=== PATIENT | female | born 1995 | race Caucasian/White ===

== ENCOUNTER → 2016-12-24 | Outpatient (CLI) | payer BC ==
[2016-12-26 07:43] LABS: THYROXINE (T4) 6.3 ug/dL (4.5-12.0)
== END ==
LOC: OD 13:11
PROVIDERS: ATTEND Pediatrics
DX: R63.5 Abnormal weight gain (principal)
CPT/HCPCS: 36415; 84436; 84443; 84480

== ENCOUNTER 2020-01-21 01:41 | Observation (INO) | payer BC ==
[2020-01-21 02:42] LABS: ABSOLUTE LYMPHOCYTES (AUTO) 1.5 10^3/uL (0.5-4.7); ABSOLUTE MONOCYTES (AUTO) 0.8 10^3/uL (0.1-1.4); ABSOLUTE NEUT (AUTO) 13.9 10^3/uL (1.7-8.2); BASOPHILS % (AUTO) 0.2 % (0-2); EOSINOPHILS % (AUTO) 0.3 % (0-6); HEMATOCRIT 42.5 % (36.0-47.0); HEMOGLOBIN 14.4 g/dL (12.0-15.5); MEAN CORPUSCULAR HEMOGLOBIN 28.7 pg (27.0-33.4); MEAN CORPUSCULAR HGB CONC 33.8 g/dL (32.0-36.0); MEAN CORPUSCULAR VOLUME 85 fl (80-97); MONOCYTES % (AUTO) 5.1 % (3-13); PLATELET COUNT 300 10^3/uL (150-450); RED BLOOD COUNT 5.01 10^6/uL (3.72-5.28); RED CELL DISTRIBUTION WIDTH 13.4 % (11.5-14.0); SEGMENTED NEUTROPHILS % (AUTO) 85.4 % (42-78); TOTAL CELLS COUNTED % (AUTO) 100 %; WHITE BLOOD COUNT 16.2 10^3/uL (4.0-10.5)
[2020-01-21 02:46] LABS: APPEARANCE,URINE SLIGHTLY-CLOUDY; BILIRUBIN,URINE NEGATIVE (NEGATIVE); COLOR,URINE YELLOW; GLUCOSE, URINE NEGATIVE (NEGATIVE); KETONES,URINE NEGATIVE (NEGATIVE); LEUKOCYTE ESTERASE,URINE NEGATIVE (NEGATIVE); NITRITE,URINE NEGATIVE (NEGATIVE); PROTEIN,URINE 30 mg/dL (NEGATIVE); URINE SPECIFIC GRAVITY 1.035; UROBILINOGEN,URINE NEGATIVE mg/dL (<2.0)
[2020-01-21 03:02] LABS: ALBUMIN 4.4 g/dL (3.5-5.0); ALKALINE PHOSPHATASE 84 U/L (38-126); ANION GAP 10 (5-19); ASPARTATE AMINO TRANSFERASE 20 U/L (14-36); BILIRUBIN,TOTAL 0.9 mg/dL (0.2-1.3); BLOOD UREA NITROGEN 10 mg/dL (7-20); CALCIUM 9.5 mg/dL (8.4-10.2); CARBON DIOXIDE 24 mmol/L (22-30); CHLORIDE 104 mmol/L (98-107); GLUCOSE 114 mg/dL (75-110); TOTAL PROTEIN 7.7 g/dL (6.3-8.2)
--- NOTE | 2020-01-21 05:44 | RADIOLOGY REPORT (SQ) ---
EXAM DESCRIPTION: CT ABDOMEN PELVIS WITH IV CONTRAST COMPLETED DATE/TME: 01/21/2020 00:00 CLINICAL HISTORY: 24 years, Female, RLQ pain COMPARISON: None. TECHNIQUE: Axial CT images of the abdomen and pelvis were obtained of the demonstration of IV contrast. Sagittal and coronal reformats were performed. [facility] 2401 Images stored on PACS. All CT scanners at this facility use dose modulation, iterative reconstruction, and/or weight based dosing when appropriate to reduce radiation dose to as low as reasonably achievable (ALARA). [facility]: Dose Right [facility]: CareDose [facility]: Dose Right [facility]: Teradose 4D [facility]: [employer] Technologies LIMITATIONS: None. FINDINGS: Lung bases are clear. The liver, gallbladder, pancreas, spleen, and adrenal glands are unremarkable. Both kidneys enhance normally. No evidence of hydronephrosis bilaterally. There is no intraperitoneal free air or fluid. There is no lymphadenopathy. Abdominal aorta is normal in caliber. The stomach and small bowel are unremarkable. The appendix measures up to 8 mm in diameter with surrounding inflammatory changes. No evidence of a perforation or abscess/phlegmon formation. The colon is incompletely distended. The uterus, adnexa, and urinary bladder are unremarkable. There are no lytic or blastic bone lesions. IMPRESSION: Acute uncomplicated appendicitis TECHNICAL DOCUMENTATION: Quality ID # 436: Final reports with documentation of one or more dose reduction techniques (e.g., Automated exposure control, adjustment of the mA and/or kV according to patient size, use of iterative reconstruction technique) copyright 2011 [employer]- All Rights Reserved
--- NOTE | 2020-01-21 06:21 | ER Document Report ---
ED General - General Chief Complaint: Abdominal Pain Stated Complaint: ABDOMINAL PAIN Time Seen by Provider: 01/21/20 06:07 Primary Care Provider: SRINIVASA MURRAY PA [Primary Care Provider] - Follow up as needed Notes: 24 y/o obese Female with past medical history of hypothyroidism presenting today with right lower quadrant pain starting yesterday at noon but worsening in intensity in the last 6 hours. States she has had associated nausea and vomiting and has been able unable to keep any food down. She is unable to find a comfortable position to sit in. Denies any fevers chills shortness of breath chest pain or additional symptoms at this time. She denies any prior abdominal surgical procedures. Is currently on control. TRAVEL OUTSIDE OF THE [place] IN LAST 30 DAYS: No - Related Data Allergies/Adverse Reactions: cephalexin [Cephalexin] Allergy (Verified 09/01/12 20:43) Penicillins Allergy (Verified 09/01/12 20:43) Home Medications: levothyroxin. control Past Medical History - Social History Smoking Status: Never Smoker Chew tobacco use (# tins/day): No Frequency of alcohol use: Occasional Family History: Reviewed & Not Pertinent Patient has homicidal ideation: No Neurological Medical History: Reports: Hx Migraine - Immunizations Immunizations up to date: Yes Hx Diphtheria, Pertussis, Tetanus Vaccination: Yes Review of Systems - Review of Systems Constitutional: No symptoms reported EENT: No symptoms reported Cardiovascular: No symptoms reported Respiratory: No symptoms reported Gastrointestinal: See HPI Genitourinary: No symptoms reported Female Genitourinary: No symptoms reported Musculoskeletal: No symptoms reported Skin: No symptoms reported Hematologic/Lymphatic: No symptoms reported Physical Exam - Vital signs Vitals: Temp Pulse Resp BP Pulse Ox 97.7 F 95 16 147/88 H 99 01/21/20 01:46 01/21/20 01:46 01/21/20 01:46 01/21/20 01:46 01/21/20 01:46 Interpretation: Tachycardic - Notes Notes: Adult General: GENERAL: Alert, interacts well. acute distress HEAD: Normocephalic, atraumatic EYES: Pupils equal, round and reactive to light. Extraocular movements intact. ENT: Airway patent. Nares patent. NECK: Full range of motion. Supple. Trachea midline. No lymphadenopathy. LUNGS: Clear to auscultation bilaterally, no wheezes, rales, or rhonchi. No respiratory distress. Nontender chest wall. HEART: Regular rate and rhythm. No murmurs, rubs or gallops. ABDOMEN: Soft, tender to palpation right lower and upper quadrant. Nondistended. (-) [place] sign. Bowel sounds present in all 4 quadrants. No rebound. GENITOURINARY: Deferred EXTREMITIES: Moves all 4 extremities spontaneously. BACK: Moves all extremities with full range of motion. NEUROLOGICAL: Alert and oriented x3. Normal speech. Strength 5/ 5 in all extremities. PSYCH: Normal affect, normal mood. SKIN: Warm, dry, normal turgor. No rashes or lesions noted. Course - Re-evaluation Re-evalutation: 01/21/20 06:22 Patient with an elevated white count of 16,200. She is afebrile. Her CT scan ordered by another provider shows acute appendicitis. I placed the patient n.p.o. and ordered urine . 01/21/20 06:26 Dr. Pizano was contacted who came to evaluate the patient. Patient to be NPO. Dr. Brumfield will be admitting physician. Rapid covid test was ordered. Pending results. 01/21/20 07:57 - Vital Signs Vital signs: Temp Pulse Resp BP Pulse Ox 98.7 F 106 H 20 125/78 100 01/21/20 05:22 01/21/20 05:22 01/21/20 05:22 01/21/20 05:22 01/21/20 05:22 - Laboratory Result Diagrams: 01/21/20 02:30 01/21/20 02:30 Laboratory results interpreted by me: 01/21/20 01/21/20 01/21/20 02:30 02:30 02:30 WBC 16.2 H Lymph % (Auto) 9.0 L Absolute Neuts (auto) 13.9 H Seg Neutrophils % 85.4 H Glucose 114 H Urine Protein 30 H Urine Ascorbic Acid 40 H Discharge - Discharge Clinical Impression: Appendicitis Qualifiers: Appendicitis type: acute appendicitis Acute appendicitis type: unspecified acute appendicitis type Qualified Code(s): K35.80 - Unspecified acute appendicitis Condition: Stable Disposition: ADMITTED INPATIENT Admitting Provider: Surgicalist - Dr. Brumfield Unit Admitted: Surgical Floor Referrals: SRINIVASA MURRAY PA [Primary Care Provider] - Follow up as needed
[2020-01-21] MEDS ORDERED: MORPHINE SULFATE 10 MG/ML INJ IV ONE (06:24)
--- NOTE | 2020-01-21 07:33 | PDOC H&P ---
History of Present Illness Admission Date/PCP: BUSTER SADLER Patient complains of: Right lower quadrant pain History of Present Illness: ZAHRA DONALDSON is a 24 year old female with a 1 day history of sharp, stabbing, worsening right lower quadrant pain. It began as intermittent cramping, and has progressed to constant sharp pain. She rates it is 8 out of 10. She denies any nausea, vomiting, fevers, or chills. She denies melena, hematochezia, or hematemesis. Her pain does not radiate. Nothing makes her pain better. Palpation and movement make it worse. She also denies chest pain, shortness of breath, dizziness, orthostasis, blurry vision, hearing difficulties, malaise, or fatigue. Past Medical History Neurological Medical History: Reports: Migraine Past Surgical History Past Surgical History: Reports: Other - [place] tooth extraction Social History Smoking Status: Never Smoker Electronic Cigarette use?: No Frequency of Alcohol Use: Occasional Hx Recreational Drug Use: No Hx Prescription Drug Abuse: No Family History Parental Family History Reviewed: Yes Children Family History Reviewed: Yes Sibling(s) Family History Reviewed.: Yes Medication/Allergy Home Medications: No Home Medications 09/06/11 Allergies/Adverse Reactions: cephalexin [Cephalexin] Allergy (Verified 09/01/12 20:43) Penicillins Allergy (Verified 09/01/12 20:43) Review of Systems Constitutional: ABSENT: anorexia, chills, fatigue, fever(s), headache(s), weakness Eyes: ABSENT: visual disturbances Ears: ABSENT: hearing changes Nose, Mouth, and Throat: ABSENT: sore throat Cardiovascular: ABSENT: chest pain Respiratory: ABSENT: cough Gastrointestinal: PRESENT: abdominal pain, bloating. ABSENT: hematochezia, melena, nausea, vomiting Genitourinary: ABSENT: dysuria Musculoskeletal: ABSENT: back pain Integumentary: ABSENT: pruritus, rash Neurological: ABSENT: confusion, convulsions, dizziness Psychiatric: ABSENT: anxiety, depression Endocrine: ABSENT: cold intolerance, heat intolerance Hematologic/Lymphatic: ABSENT: easy bleeding, easy bruising Physical Exam Vital Signs: Temp Pulse Resp BP Pulse Ox 98.7 F 106 H 20 125/78 100 01/21/20 05:22 01/21/20 05:01/21/20 05:01/21/20 05:01/21/20 05:22 Intake & Output 01/20/20 01/21/20 01/22/20 06:59 06:59 06:59 Weight 126.4 kg General appearance: PRESENT: no acute distress, cooperative Head exam: PRESENT: atraumatic, normocephalic Eye exam: PRESENT: EOMI, PERRLA. ABSENT: scleral icterus Mouth exam: PRESENT: moist, neck supple Neck exam: PRESENT: meningismus, tenderness, thyromegaly, tracheal deviation Respiratory exam: PRESENT: unlabored. ABSENT: tachypnea, wheezes Cardiovascular exam: ABSENT: tachycardia Vascular exam: PRESENT: normal capillary refill GI/Abdominal exam: PRESENT: guarding - in the right lower quadrant, soft, tenderness - Right lower quadrant Rectal exam: PRESENT: deferred Extremities exam: ABSENT: clubbing Musculoskeletal exam: ABSENT: deformity Neurological exam: PRESENT: alert, awake, oriented to person, oriented to place, oriented to time, oriented to situation Psychiatric exam: ABSENT: agitated, anxious, depressed Focused psych exam: ABSENT: delusional Skin exam: ABSENT: cyanosis, erythema, jaundice Results Laboratory Results: 01/21/20 02:30 01/21/20 02:30 01/21/20 01/21/20 01/21/20 02:30 02:30 02:30 WBC 16.2 H RBC 5.01 Hgb 14.4 Hct 42.5 MCV 85 MCH 28.7 MCHC 33.8 RDW 13.4 Plt Count 300 Seg Neutrophils % 85.4 H Sodium 137.8 Potassium 4.0 Chloride 104 Carbon Dioxide 24 Anion Gap 10 BUN 10 Creatinine 0.67 Est GFR ( Amer) > 60 Glucose 114 H Calcium 9.5 Total Bilirubin 0.9 AST 20 Alkaline Phosphatase 84 Total Protein 7.7 Albumin 4.4 Lipase 92.3 Urine Color YELLOW Urine Appearance SLIGHTLY-CLOUDY Urine pH 5.0 Ur Specific [place] 1.035 Urine Protein 30 H Urine Glucose (UA) NEGATIVE Urine Ketones NEGATIVE Urine Blood NEGATIVE Urine Nitrite NEGATIVE Ur Leukocyte Esterase NEGATIVE Urine WBC (Auto) 3 Urine RBC (Auto) 1 Impressions: Abdomen/Pelvis CT 01/21/20 00:00 IMPRESSION: Acute uncomplicated appendicitis TECHNICAL DOCUMENTATION: Quality ID # 436: Final reports with documentation of one or more dose reduction techniques (e.g., Automated exposure control, adjustment of the mA and/or kV according to patient size, use of iterative reconstruction technique) copyright 2010 [employer]- All Rights Reserved Assessment & Plan - Diagnosis (1) Acute appendicitis Qualifiers: Acute appendicitis type: unspecified acute appendicitis type Qualified Code(s): K35.80 - Unspecified acute appendicitis Is this a current diagnosis for this admission?: Yes - Plan Summary Plan Summary: This is a 24-year-old female with acute appendicitis, seen on CT scan. She has a leukocytosis and right lower quadrant pain. I have discussed operative versus nonoperative treatment of appendicitis. The patient has chosen operative intervention. Risks/benefits discussed, informed consent obtained, and all ques tions answered. Rapid COVID test now. The procedure will be performed later today by Dr. Brumfield. Patient has been informed of this, and is agreeable.
[2020-01-21] MEDS ORDERED: ONDANSETRON HCL INJ/PF 4 MG/2 ML SDV IV PRN ×2 (07:45→13:42)
[2020-01-21] MEDS ORDERED: DEXTROSE 5%-LACTATED RINGERS 1,000 ML IV PRN (07:45)
[2020-01-21] MEDS ORDERED: METRONIDAZOLE 500 MG/NS RTU 500 MG/100 ML RTUPB IV ONE (08:00)
[2020-01-21] MEDS ORDERED: CIPROFLOXACIN 400 MG/D5W RTU 400 MG/200 ML RTUPB IV ONE (08:00)
[2020-01-21] MEDS ORDERED: ACETAMINOPHEN 1,000 MG/100 ML RTUPB IV ONE (08:00)
[2020-01-21] MEDS ORDERED: VECURONIUM BROMIDE INJ 10 MG VIAL IV ONE (08:29)
[2020-01-21] MEDS ORDERED: SUCCINYLCHOLINE CHLORIDE INJ 200 MG/10 ML VIAL ONE (08:29)
[2020-01-21] MEDS: KETOROLAC TROMETHAMINE INJ/PF 30 MG/1 ML SDV IV PRN ×2 (10:25→18:37)
[2020-01-21] MEDS ORDERED: BUPIVACAINE HCL 0.25 % INJ/PF (2.5 MG/1 ML) 30 ML VIAL ONE (11:52)
[2020-01-21] MEDS ORDERED: KETOROLAC TROMETHAMINE 60 MG/2 ML SDV ONE (12:46)
[2020-01-21] MEDS ORDERED: ONDANSETRON HCL INJ/PF 4 MG/2 ML SDV ONE (12:46)
[2020-01-21] MEDS ORDERED: MIDAZOLAM 2 MG/2 ML INJ ONE (12:46)
[2020-01-21] MEDS ORDERED: PROPOFOL INJ 200 MG/20 ML VIAL IV ONE (12:46)
[2020-01-21] MEDS ORDERED: FENTANYL CITRATE INJ/PF 100 MCG/2 ML AMPUL ONE (12:46)
[2020-01-21] MEDS ORDERED: MEPERIDINE HCL/PF INJ 25 MG/1 ML DISP.SYRIN IV PRN (13:42)
[2020-01-21] MEDS ORDERED: FENTANYL CITRATE INJ/PF 100 MCG/2 ML AMPUL IV PRN ×3 (13:42)
[2020-01-21] MEDS ORDERED: MORPHINE SULFATE 10 MG/ML INJ IV PRN ×2 (13:42→21:59)
[2020-01-21] MEDS ORDERED: DIPHENHYDRAMINE HCL 50 MG/ML VIAL IV PRN (13:42)
[2020-01-21] MEDS ORDERED: PROMETHAZINE HCL INJ 25 MG/1 ML VIAL IV PRN ×2 (13:42)
[2020-01-21] MEDS ORDERED: OXYCODONE-ACETAMINOPHEN 5-325 MG TABLET PO PRN ×2 (13:42)
--- NOTE | 2020-01-21 15:22 | Operative Report ---
Operative Report DATE OF SURGERY: 01/21/20 PREOPERATIVE DIAGNOSIS: Acute appendicitis POSTOPERATIVE DIAGNOSIS: Same OPERATION: Laparoscopic appendectomy SURGEON: ELIZA DOWNING ANESTHESIA: GA TISSUE REMOVED OR ALTERED: Appendix COMPLICATIONS: None ESTIMATED BLOOD LOSS: 10 cc QUANTITATIVE BLOOD LOSS: 10 INTRAOPERATIVE FINDINGS: Acute appendicitis PROCEDURE: After adequate general anesthesia patient was placed in supine position and the abdomen prepped and draped in the usual sterile fashion. Appropriate timeout was called. Next an infraumbilical incision was made fascia identified grabbed with Mehul clamps and divided between the Mehul clamps. Opening was enlarged with a Natalia clamp and the 2-0 Vicryl stitches were placed on each side of the fascia and the clamps released. While pulling on the stay sutures a Murdock trocar was then inserted through the fascia into the abdominal cavity and CO2 insufflated to a pressure of 15 mmHg. Camera was then inserted and 2 other trochars were placed under direct vision a 5 mm in the suprapubic and 12 mm in t he left lower quadrant. The appendix was then identified noted to be inflamed. The tip was then elevated and the mesoappendix divided with the use of harmonic belkys. The base of the appendix was subsequently stapled with a 45 mm Endo BURT blue load. This appendix was then placed in an Endobag and pulled out through the umbilical port Mondragon trocar was then inserted back and the operative site irrigated and no real active bleeding noted. However it may be a little oozing on the staple line and and a Surgicel was was placed over this which is controlled the bleeding. Next all the trochars were removed and CO2 allowed to come out of the trocar sites. The fascial defect was then closed with a [id number] suture using 2-0 Vicryl and the 2 stay sutures tied together for better closure. The fascia was then entered injected with Marcaine as well as the skin incisions. All the skin incisions were then closed with running subcuticular 4-0 Vicryl undyed. Steri-Strips placed over the operative sites. Needle instrument sponge count were all correct and patient brought to recovery in satisfactory condition.
[2020-01-21] MEDS: ACETAMINOPHEN 1,000 MG/100 ML RTUPB IV SCH ×2 (15:38→22:27)
[2020-01-21] MEDS: METRONIDAZOLE 500 MG/NS RTU 500 MG/100 ML RTUPB IV SCH ×2 (15:43→22:28)
[2020-01-21] MEDS ORDERED: CIPROFLOXACIN 400 MG/D5W RTU 400 MG/200 ML RTUPB IV SCH (22:00)
[2020-01-21] MEDS: MORPHINE SULFATE 10 MG/ML INJ IV PRN (22:28)
[2020-01-22] MEDS: MORPHINE SULFATE 10 MG/ML INJ IV PRN (05:20)
[2020-01-22] MEDS: METRONIDAZOLE 500 MG/NS RTU 500 MG/100 ML RTUPB IV SCH (05:20)
[2020-01-22] MEDS: ACETAMINOPHEN 1,000 MG/100 ML RTUPB IV SCH (05:20)
[2020-01-22 09:42] VITALS: BP 103/56
--- NOTE | 2020-01-22 10:50 | PDOC DISCHARGE SUMMARY ---
General - Admit/Disc Date/PCP Admission Date/Primary Care Provider: 01/21/20 08:10 BUSTER SADLER Discharge Date: 01/22/20 - Discharge Diagnosis Final Diagnosis: Acute appendicitis - Assessment Summary: 24-year-old admitted yesterday for acute appendicitis. Patient immediately taken to the OR for laparoscopic appendectomy for acute appendicitis. Next day 01/22/2020 patient tolerating regular diet and vital signs remained stable. She will be discharged to home on prescription of Toradol as needed for pain. She will be followed in in the surgical clinic in 2 weeks. - Additional Information Resuscitation Status: Full Code Discharge Diet: As Tolerated Discharge Activity: Activity As Tolerated, Balance Activity w/Rest Referrals: [facility] [Provider Group] SRINIVASA MURRAY PA [Primary Care Provider] - Follow up as needed Home Medications: Levothyroxine Sodium 50 mcg PO Q6AM 01/21/20 History of Present Illiness History of Present Illness: ZAHRA DONALDSON is a 24 year old female Hospital Course Hospital Course: Underwent laparoscopic appendectomy for acute appendicitis on 01/20/2019. Patient doing well and discharged on 01/22/2020 to be followed at the surgical clinic in 2 weeks Physical Exam Vital Signs: Temp Pulse Resp BP Pulse Ox 97.8 F 78 15 103/56 L 100 01/22/20 09:31 01/22/20 09:31 01/22/20 09:31 01/22/20 09:31 01/22/20 09:31 Intake & Output 01/21/20 01/22/20 01/23/20 06:59 06:59 06:59 Intake Total 3220 Output Total 10 Balance 3210 Weight 126.4 kg 136.8 kg Exam: Abdomen is soft nontender in all the incisions are dry on the day of discharge 01/22/2020 Results Laboratory Results: WBC 16.2 10^3/uL (4.0-10.5) H 01/21/20 02:30 RBC 5.01 10^6/uL (3.72-5.28) 01/21/20 02:30 Hgb 14.4 g/dL (12.0-15.5) 01/21/20 02:30 Hct 42.5 % (36.0-47.0) 01/21/20 02:30 MCV 85 fl (80-97) 01/21/20 02:30 MCH 28.7 pg (27.0-33.4) 01/21/20 02:30 MCHC 33.8 g/dL (32.0-36.0) 01/21/20 02:30 RDW 13.4 % (11.5-14.0) 01/21/20 02:30 Plt Count 300 10^3/uL (150-450) 01/21/20 02:30 Lymph % (Auto) 9.0 % (13-45) L 01/21/20 02:30 [place] % (Auto) 5.1 % (3-13) 01/21/20 02:30 Eos % (Auto) 0.3 % (0-6) 01/21/20 02:30 Baso % (Auto) 0.2 % (0-2) 01/21/20 02:30 Absolute Neuts (auto) 13.9 10^3/uL (1.7-8.2) H 01/21/20 02:30 Absolute Lymphs (auto) 1.5 10^3/uL (0.5-4.7) 01/21/20 02:30 Absolute Monos (auto) 0.8 10^3/uL (0.1-1.4) 01/21/20 02:30 Absolute Eos (auto) 0.0 10^3/uL (0.0-0.6) 01/21/20 02:30 Absolute Basos (auto) 0.0 10^3/uL (0.0-0.2) 01/21/20 02:30 Seg Neutrophils % 85.4 % (42-78) H 01/21/20 02:30 Sodium 137.8 mmol/L (137-145) 01/21/20 02:30 Potassium 4.0 mmol/L (3.6-5.0) 01/21/20 02:30 Chloride 104 mmol/L (98-107) 01/21/20 02:30 Carbon Dioxide 24 mmol/L (22-30) 01/21/20 02:30 Anion Gap 10 (5-19) 01/21/20 02:30 BUN 10 mg/dL (7-20) 01/21/20 02:30 Creatinine 0.67 mg/dL (0.52-1.25) 01/21/20 02:30 Est GFR ( Amer) > 60 (>60) 01/21/20 02:30 Est GFR (MDRD) Non-Af > 60 (>60) 01/21/20 02:30 Glucose 114 mg/dL (75-110) H 01/21/20 02:30 Calcium 9.5 mg/dL (8.4-10.2) 01/21/20 02:30 Total Bilirubin 0.9 mg/dL (0.2-1.3) 01/21/20 02:30 Direct Bilirubin 0.0 mg/dL (0.0-0.4) 01/21/20 02:30 Neonat Total Bilirubin Not Reportable 01/21/20 02:30 Neonat Direct Bilirubin Not Reportable 01/21/20 02:30 Neonat Indirect Bili Not Reportable 01/21/20 02:30 AST 20 U/L (14-36) 01/21/20 02:30 ALT 24 U/L (<35) 01/21/20 02:30 Alkaline Phosphatase 84 U/L (38-126) 01/21/20 02:30 Total Protein 7.7 g/dL (6.3-8.2) 01/21/20 02:30 Albumin 4.4 g/dL (3.5-5.0) 01/21/20 02:30 Lipase 92.3 U/L (23-300) 01/21/20 02:30 Urine Color YELLOW 01/21/20 02:30 Urine Appearance SLIGHTLY-CLOUDY 01/21/20 02:30 Urine pH 5.0 (5.0-9.0) 01/21/20 02:30 Ur Specific [place] 1.035 01/21/20 02:30 Urine Protein 30 mg/dL (NEGATIVE) H 01/21/20 02:30 Urine Glucose (UA) NEGATIVE mg/dL (NEGATIVE) 01/21/20 02:30 Urine Ketones NEGATIVE mg/dL (NEGATIVE) 01/21/20 02:30 Urine Blood NEGATIVE (NEGATIVE) 01/21/20 02:30 Urine Nitrite NEGATIVE (NEGATIVE) 01/21/20 02:30 Urine Bilirubin NEGATIVE (NEGATIVE) 01/21/20 02:30 Urine Urobilinogen NEGATIVE mg/dL (<2.0) 01/21/20 02:30 Ur Leukocyte Esterase NEGATIVE (NEGATIVE) 01/21/20 02:30 Urine WBC (Auto) 3 /HPF 01/21/20 02:30 Urine RBC (Auto) 1 /HPF 01/21/20 02:30 Urine Bacteria (Auto) TRACE /HPF 01/21/20 02:30 Squamous Epi Cells Auto 9 /HPF 01/21/20 02:30 Urine Mucus (Auto) MANY /LPF 01/21/20 02:30 Urine Ascorbic Acid 40 (NEGATIVE) H 01/21/20 02:30 Urine HCG, Qual NEGATIVE (NEGATIVE) 01/21/20 06:27 SARS-CoV-2 (PCR) NEGATIVE (NEGATIVE) 01/21/20 06:55 Impressions: Abdomen/Pelvis CT 01/21/20 00:00 IMPRESSION: Acute uncomplicated appendicitis TECHNICAL DOCUMENTATION: Quality ID # 436: Final reports with documentation of one or more dose reduction techniques (e.g., Automated exposure control, adjustment of the mA and/or kV according to patient size, use of iterative reconstruction technique) copyright 2011 [employer]- All Rights Reserved Plan Health Concerns: To resume regular activities Plan of Treatment: Avoid lifting more than 10 to 15 pounds for the next 2 weeks until seen in the clinic Goals: To be able to return to regular activities Time Spent: Less than 30 Minutes
== END 2020-01-22 10:45 | disposition home or self-care (01) ==
LOC: ER 01:41 → EH 08:10 → 4N 10:20
PROVIDERS: ADMIT Surgery; ATTEND Surgery
DX: K35.80 Unspecified acute appendicitis (principal); R00.0 Tachycardia, unspecified; Z79.3 Long term (current) use of hormonal contraceptives; Z03.818 Encounter for observation for suspected exposure to other biological agents ruled out
CPT/HCPCS: 99285; 96375; 96365; 36415; 83690; 85025; 87635; 81025; 80053; 81001; 88304 ×2; 74177; 99140; 00840; 44970; G0378 ×3; J2250; J1885 ×2; J3010; J3490 ×3; J2270 ×2; J0330; J2405; J2704; J0744; J0131 ×2; C9803; 840